=== PATIENT | female | born 1985 | race Caucasian/White ===

== ENCOUNTER 2021-02-27 19:44 | Emergency (ER) | payer OTHER ==
[2021-02-27] MEDS ORDERED: HYDROCODON-ACE1 EAC4 PO (21:41)
== END 2021-02-27 21:09 | disposition home or self-care (01) ==
LOC: ER1 19:44
DX: S82.402A Unspecified fracture of shaft of left fibula, initial encounter for closed fracture (principal); V49.40XA Driver injured in collision with unspecified motor vehicles in traffic accident, initial encounter; Y92.410 Unspecified street and highway as the place of occurrence of the external cause
CPT/HCPCS: 73130; 73564; 73590; 73610; 99283

== ENCOUNTER 2021-09-18 12:49 | Emergency (ER) | payer OTHER ==
[~2021-09-18 12:49] MED LIST: HYDROCODON-ACE1 EAC4 PO
[2021-09-18 14:20] LABS: BUN/CREATININE RATIO 7 (0-10)
[2021-09-18 14:33] LABS: HEMOGLOBIN 14.8 gm/dl (12.3-15.3); RED BLOOD COUNT 5.14 M/UL (4.00-5.10); WHITE BLOOD COUNT 6.3 K/UL (4.5-11.0)
== END 2021-09-18 18:40 | disposition home or self-care (01) ==
LOC: ER1 12:49
PROVIDERS: Physician Assistant Medical
DX: R10.9 Unspecified abdominal pain (principal); R11.2 Nausea with vomiting, unspecified; Z90.49 Acquired absence of other specified parts of digestive tract; Z88.5 Allergy status to narcotic agent; F17.290 Nicotine dependence, other tobacco product, uncomplicated
CPT/HCPCS: 80053; 81001; 83690; 85025; 85610; 99284; Q9967

== ENCOUNTER 2022-04-16 18:46 | Emergency (ER) | payer OTHER ==
[2022-04-16 19:48] LABS: BUN/CREATININE RATIO 8 (0-10)
[2022-04-16 19:50] LABS: HEMOGLOBIN 12.9 gm/dl (12.3-15.3); RED BLOOD COUNT 4.41 M/UL (4.00-5.10); WHITE BLOOD COUNT 8.3 K/UL (4.5-11.0)
[2022-04-16] MEDS ORDERED: PREDNISONE 20 M20 MG PO (22:51)
== END 2022-04-16 23:11 | disposition home or self-care (01) ==
LOC: ER1 18:46
PROVIDERS: Student in an Organized Health Care Education/Training Program
DX: J38.4 Edema of larynx (principal); Z88.5 Allergy status to narcotic agent
CPT/HCPCS: 70490; 80053; 85025; 94664; 96374; 99285; J2930; Q9967